=== PATIENT | male | born 1950 | race Caucasian/White ===

== ENCOUNTER 2016-10-27 14:52 | Emergency (ER) | payer MEDICARE, OTHER ==
[2016-10-27 15:05] VITALS: RESP 18
[2016-10-27] MEDS ORDERED: SODIUM CHLORIDE 0.9% 1,000 ML IV STA ×2 (16:40)
--- NOTE | 2016-10-27 17:18 | ED ---
General Adult HPI - General Chief complaint: Weakness Stated complaint: Poss Stroke Time Seen by Provider: 10/27/16 16:18 Source: patient, RN notes reviewed, old records reviewed Mode of arrival: wheelchair Limitations: no limitations - History of Present Illness Initial comments: This is a 66-year-old male the ER for evaluation. This patient presents for evaluation of bilateral arm tingling, foggy vision, foggy thought process. Patient has family history of stroke but himself has no high blood pressure [place] stromal diabetes. No prior history of stroke no history of heart disease. Patient denies significant significant sickness or illness, no nausea vomiting or diarrhea no fevers or travel history. No recent hospitalizations. Patient stated that that makes is no neurological deficit. Symptoms and been on and off for 4 days. Patient denies drugs or all call, no new medications - Related Data Home Medications Medication Instructions Recorded Confirmed Ascorbic Acid [Vitamin C with Caitlyn 500 mg PO DAILY 10/27/16 10/27/16 Hips] Aspirin EC [Ecotrin Low Dose] 81 mg PO DAILY 10/27/16 10/27/16 Multivitamins, Thera [Multivitamin 1 tab PO DAILY 10/27/16 10/27/16 (formulary)] Naproxen Sodium [Aleve] 220 mg PO ONCE PRN 10/27/16 10/27/16 Vit A,C & E/Lutein/Minerals 1 tab PO DAILY 10/27/16 10/27/16 [Ocuvite with Lutein Tablet] Allergies Allergy/AdvReac Type Severity Reaction Status Date / Time yellow cedar wood Allergy Dyspnea Uncoded 10/27/16 15:05 Review of Systems ROS Statement: Those systems with pertinent positive or pertinent negative responses have been documented in the HPI. ROS Other: All systems not noted in ROS Statement are negative. Past Medical History Past Medical History: Hyperlipidemia History of Any Multi-Drug Resistant Organisms: None Reported Past Surgical History: Tonsillectomy Past Psychological History: No Psychological Hx Reported Smoking Status: Never smoker Past Alcohol Use History: None Reported Past Drug Use History: None Reported General Exam - General Exam Comments Initial Comments: NIH of 0 Limitations: no limitations General appearance: alert, in no apparent distress Head exam: Present: atraumatic, normocephalic, normal inspection Eye exam: Present: normal appearance, PERRL, EOMI. Absent: scleral icterus, conjunctival injection, periorbital swelling ENT exam: Present: normal exam, mucous membranes moist Neck exam: Present: normal inspection. Absent: tenderness, meningismus, lymphadenopathy Respiratory exam: Present: normal lung sounds bilaterally. Absent: respiratory distress, wheezes, rales, rhonchi, stridor Cardiovascular Exam: Present: regular rate, normal rhythm, normal heart sounds. Absent: systolic murmur, diastolic murmur, rubs, gallop, clicks GI/Abdominal exam: Present: soft, normal bowel sounds. Absent: distended, tenderness, guarding, rebound, rigid Extremities exam: Present: normal inspection, full ROM, normal capillary refill. Absent: tenderness, pedal edema, joint swelling, calf tenderness Back exam: Present: normal inspection Neurological exam: Present: alert, oriented X3, CN II-XII intact Psychiatric exam: Present: normal affect, normal mood Skin exam: Present: warm, dry, intact, normal color. Absent: rash Course Vital Signs 10/27/16 15:01 Temperature 98 F Pulse Rate 103 H Respiratory 18 Rate Blood Pressure 146/86 O2 Sat by Pulse 96 Oximetry - Reevaluation(s) Reevaluation #1: 10/27/16 17:46 Patient consult the greater than 15 minutes regarding signs and symptoms of CVA , anesthesia, patient will be discharged home to follow up with neurology her family doctor is he can Medical Decision Making - Medical Decision Making 66 mailed ER for evaluation of foggy brain, foggy vision, paresthesias bilateral arms, tingling and numbness. No weakness no strength deficit NIH's 0 , no neurological deficits found, CT is negative, symptoms for 4 days, secondary duration of symptoms and physical exam patient will be discharged home - Radiology Data Radiology results: report reviewed (CT brain negative for acute disease), image reviewed Disposition Clinical Impression: Paresthesia of both hands Disposition: HOME SELF-CARE Condition: Good Instructions: Paresthesia (ED) Referrals: Giselle Butler DO [Primary Care Provider] - 1-2 days
[2016-10-27 18:04] LABS: Appearance,Urine Clear (Clear); Bilirubin,Urine Negative (Negative); Glucose,Urine (UA) Negative (Negative); Ketones,Urine 2+ (Negative); Leukocyte Esterase,Urine Trace (Negative); Mucus,Urine Few /hpf; Nitrite,Urine Negative (Negative); Particle Count 3785; Protein,Urine Trace (Negative); RBC,Urine 7 /hpf (0-5); Specific Gravity,Urine 1.018 (1.001-1.035); Squamous Epithelial Cell,Urine <1 /hpf (0-4); UA Billing (MACRO vs. MICRO) MICRO; Urobilinogen,Urine <2.0 mg/dL (<2.0); WBC,Urine 1 /hpf (0-5)
--- NOTE | 2016-10-27 18:20 | CT ---
EXAMINATION TYPE: CT brain wo con DATE OF EXAM: 10/27/2016 6:02 PM COMPARISON: NONE HISTORY: weakness and numbness CT DLP: 986.5 mGycm Automated exposure control for dose reduction was used. FINDINGS: Ventricles have normal size. There is no mass effect nor midline shift. There is no sign of intracran ial hemorrhage. There is no sign of cerebral edema. The calvarium is intact. IMPRESSION: Negative unenhanced head CT scan.
[2016-10-27 18:21] LABS: Basophils # (A) 0.1 k/uL (0-0.2); Basophils % (A) 1 %; CH 31.8; CHCM 35.2; Eosinophils % (A) 0 %; HCT 48.7 % (39.0-53.0); HDW 2.34; HGB 16.7 gm/dL (13.0-17.5); Luc # (Auto) 0.28; Luc % (Auto) 4; Lymphocytes # (A) 1.8 k/uL (1.0-4.8); Lymphocytes % (A) 24 %; MCHC 34.2 g/dL (31.0-37.0); MCV 90.5 fL (80.0-100.0); Monocytes # (A) 0.4 k/uL (0-1.0); Monocytes % (A) 5 %; Neutrophils # (A) 5.2 k/uL (1.3-7.7); Neutrophils % (A) 67 %; RBC 5.38 m/uL (4.30-5.90); RDW 12.6 % (11.5-15.5); WBC 7.8 k/uL (3.8-10.6)
[2016-10-27 18:28] LABS: Partial Thromboplastin Time 23.3 sec (22.0-30.0); Prothrombin Time 10.3 sec (9.0-12.0)
[2016-10-27 18:34] LABS: ALT 34 U/L (21-72); AST 37 U/L (17-59); Alkaline Phosphatase 71 U/L (38-126); Anion Gap 14 mmol/L; Blood Urea Nitrogen 24 mg/dL (9-20); Calcium 9.7 mg/dL (8.4-10.2); Carbon Dioxide 24 mmol/L (22-30); Chloride 102 mmol/L (98-107); Glucose 86 mg/dL (74-99); Non-African American GFR(MDRD) >60 (>60 ml/min/1.73 sqM); Phosphorous 3.5 mg/dL (2.5-4.5); Sodium 140 mmol/L (137-145); Total Bilirubin 1.1 mg/dL (0.2-1.3); Total Protein 7.8 g/dL (6.3-8.2)
[2016-10-27 18:35] LABS: Potassium 4.4 mmol/L (3.5-5.1)
[2016-10-27 18:39] LABS: Creatine Kinase 132 U/L (55-170)
[2016-10-27 18:52] LABS: Creatine Kinase MB 1.5 ng/mL (0.0-2.4); Troponin I <0.012 ng/mL (0.000-0.034)
[2016-10-27 19:01] VITALS: BP 151/90; PULSE 76; TEMP 97.1
== END 2016-10-27 18:45 | disposition home or self-care (01) ==
LOC: EC 14:52
DX: R20.2 Paresthesia of skin (principal); H53.8 Other visual disturbances; Z79.82 Long term (current) use of aspirin; Z79.899 Other long term (current) drug therapy; Z91.09 Other allergy status, other than to drugs and biological substances
CPT/HCPCS: 36415; 70450; 80053; 81001; 82550; 82553; 83735; 84100; 84484; 85025; 85610; 85730; 87086; 99285